=== PATIENT | female | born 1970 | race Caucasian/White ===

== ENCOUNTER → 2019-02-14 | Outpatient (CLI) | payer BC ==
[2019-02-14 11:27] LABS: Basophils % (A) 1 %; Eosinophils # (A) 0.1 k/uL (0-0.7); Eosinophils % (A) 3 %; HCT 37.8 % (34.0-46.0); HGB 12.7 gm/dL (11.4-16.0); Lymphocytes # (A) 1.1 k/uL (1.0-4.8); Lymphocytes % (A) 27 %; MCH 30.6 pg (25.0-35.0); MCHC 33.5 g/dL (31.0-37.0); MCV 91.4 fL (80.0-100.0); Mean Platelet Volume 6.3; Monocytes # (A) 0.3 k/uL (0-1.0); Monocytes % (A) 7 %; Neutrophils # (A) 2.3 k/uL (1.3-7.7); Neutrophils % (A) 58 %; Platelet Count 202 k/uL (150-450); RBC 4.14 m/uL (3.80-5.40); RDW 12.6 % (11.5-15.5)
== END | disposition home or self-care (01) ==
LOC: LABWHC1 10:29
PROVIDERS: ATTEND Obstetrics & Gynecology
DX: D50.0 Iron deficiency anemia secondary to blood loss (chronic) (principal)
CPT/HCPCS: 36415; 82306; 85025

== ENCOUNTER → 2019-04-20 | Outpatient (CLI) | payer BC ==
[2019-04-20 16:58] LABS: African American GFR (CKD) 87.6 (60.0-200.0); Albumin 4.3 g/dL (3.80-4.90); Albumin/Globulin Ratio 2.05 (1.60-3.17); Anion Gap 7.1 mmol/L (4.00-12.00); BUN/Creat Ratio 16.67 Ratio (12.00-20.00); Calcium 9.5 mg/dL (8.7-10.3); Carbon Dioxide 22.9 mmol/L (21.6-31.8); Chol/HDL Ratio 2.46; Globulin 2.1 g/dL (1.6-3.3); LDL Cholesterol,Calculated 89.8 mg/dL (0.0-131.0); Non-African American GFR(CKD) 75.6 (60.0-200.0); Potassium 4.2 mmol/L (3.5-5.5); Total Bilirubin 0.7 mg/dL (0.2-1.2); Total Protein 6.4 g/dL (6.2-8.2); VLDL Calculation 11.2 mg/dL (5.00-40.00)
== END | disposition home or self-care (01) ==
LOC: LABWHC1 08:39
PROVIDERS: ATTEND Internal Medicine
DX: Z00.00 Encounter for general adult medical examination without abnormal findings (principal); E55.9 Vitamin D deficiency, unspecified; M85.80 Other specified disorders of bone density and structure, unspecified site
CPT/HCPCS: 36415; 80053; 80061; 82306

== ENCOUNTER → 2020-06-28 | Outpatient (CLI) | payer BC ==
--- NOTE | 2020-06-28 12:52 | ECHOF ---
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 This was a technically adequate study. The left ventricular size is normal. Left ventricular wall thickness is normal. Overall left vent ricular systolic function is normal with, an EF between 55 - 60 %. The diastolic filling pattern is normal for the age of the patient 10.60. The right ventricle is normal in size. Normal LA size by volume 22+/-6 ml/m2. The right atrial size is normal. Interatrial and interventricular septum intact. The aortic valve is trileaflet, and appears structurally normal. No aortic stenosis or regurgitation. The mitral valve is normal. There is trace to mild mitral regurgitation. The tricuspid valve appears structurally normal. Mild tricuspid regurgitation present. Right vent ricular systolic pressure is normal at < 35 mmHg. There is no pulmonic regurgitation present. Pulmonary artery pressure 3.5 mm/Hg The aortic root size is normal. Normal inferior vena cava with normal inspiratory collapse consistent with estimated right atrial pre ssure of 5 mmHg. There is no pericardial effusion. CONCLUSIONS -------- 1. Left ventricular wall thickness is normal. 2. Overall left ventricular systolic function is normal with, an EF between 55 - 60 %. 3. Normal LA size by volume 22+/-6 ml/m2. 4. The aortic valve is trileaflet, and appears structurally normal. No aortic stenosis or regurgitati on. 5. There is trace to mild mitral regurgitation. 6. Mild tricuspid regurgitation present. 7. Pulmonary artery pressure 3.5 mm/Hg 8. There is no pericardial effusion. DIRECTOR OF DEMENTIA OPERATIONS: Calli Rowan RDCS
== END ==
LOC: CPPFTMAIN 07:33
PROVIDERS: ATTEND Internal Medicine Rheumatology
DX: I08.1 Rheumatic disorders of both mitral and tricuspid valves (principal)
CPT/HCPCS: 93306; 94060; 94726; 94729

== ENCOUNTER → 2021-08-01 | Outpatient (CLI) | payer BC ==
[~2021-08-01] MED LIST: BEBTELOVIMAB (EUA) 175 MG/2 ML VIAL IV NR; SODIUM CHLORIDE 0.9% 500 ML 500 ML in EMPTY BAG 1 BAG IV PRN
[2021-08-01 13:27] VITALS: TEMP 98.3
[2021-08-01 14:07] VITALS: BP 100/69; PULSE 71; RESP 16
== END ==
LOC: PROCWHC3 13:01
PROVIDERS: ATTEND Family Medicine
DX: U07.1 COVID-19 (principal); Z88.2 Allergy status to sulfonamides
CPT/HCPCS: 96374; Q0222; M0222

== ENCOUNTER 2022-09-07 10:49 | Day surgery (SDC) | payer BC ==
[2022-09-05 15:17] VITALS: BMI 21.6
[~2022-09-07 10:49] MED LIST changes: -BEBTELOVIMAB (EUA) 175 MG/2 ML VIAL IV NR; +LACTATED RINGERS 1,000 ML IV SCH; -SODIUM CHLORIDE 0.9% 500 ML 500 ML in EMPTY BAG 1 BAG IV PRN
[2022-09-07 12:54] VITALS: TEMP 97
[2022-09-07] MEDS ORDERED: LIDOCAINE 1% (10MG/ML) FOR IV START INTRADERMA ONE (12:54)
[2022-09-07] MEDS ORDERED: LIDOCAINE 2% INJ 20 MG/ML (2 ML VIAL) ONE (13:12)
[2022-09-07] MEDS ORDERED: PROPOFOL 10 MG/ML 20 ML VIAL IV ONE (13:12)
[2022-09-07 13:13] LABS: Glucose,Whole Blood 74 mg/dL (70-110)
--- NOTE | 2022-09-07 13:32 | P.PCN ---
Date of Procedure: 09/07/22 Procedure(s) Performed: BRIEF HISTORY: Patient is a 52-year-old pleasant white female scheduled for an elective colonoscopy as a part of screening for colon cancer. PROCEDURE PERFORMED: Colonoscopy. PREOPERATIVE DIAGNOSIS: Screening for colon cancer. IV sedation per Anesthesia. PROCEDURE: After informed consent was obtained, the patient, was brought into the endoscopy unit. IV sedation was administered by Anesthesia under continuous monitoring. Digital rectal examination was normal. Initially the Olympus CF-160 flexible video colonoscope was then inserted in the rectum, gradually advanced into the cecum without any difficulty. Careful examination was performed as the scope was gradually being withdrawn. Ileocecal valve and the appendiceal orifice were visualized and appeared normal. Prep was excellent. Mucosa of the cecum, ascending colon, transverse colon, descending colon, sigmoid colon, and rectum appeared normal. Retroflexion was performed in the rectum and no lesions were seen. The patient tolerated the procedure well. IMPRESSION: Normal-appearing colon from rectum to cecum with no evidence of colorectal neoplasia . RECOMMENDATIONS: Findings of this examination were discussed with the patient as well as a family. She was advised to have a repeat screening colonoscopy in 10 years.
[2022-09-07 13:52] VITALS: BP 107/70; PULSE 70; RESP 12
== END 2022-09-07 14:05 | disposition home or self-care (01) ==
LOC: ORWHC2ENDO 10:49
PROVIDERS: ATTEND Internal Medicine Gastroenterology
DX: Z12.11 Encounter for screening for malignant neoplasm of colon (principal); Z79.899 Other long term (current) drug therapy; Z88.2 Allergy status to sulfonamides
CPT/HCPCS: 45378; J2704; J2001

== ENCOUNTER → 2023-02-26 | Outpatient (CLI) | payer BC ==
--- NOTE | 2023-02-26 12:51 | CA ---
Transthoracic Echo Report Name: Liya Carreon Age: 52 Gender: F : 1970 Exam Date: 02/26/2023 11:41 Exam Location: [facility] Ht (in): 67 Wt (lb): 135 Ordering Physician: Sherry Camejo MD Attending/Referring Phys: Sherry Camejo MD Director Strategic Planning Blank Saldana [facility] Procedure CPT: Indications: M34.9 Systemic Sclerosis Cardiac Hx: Technical Quality: Fair Contrast 1: Total Dose (mL): Contrast 2: Total Dose (mL): MEASUREMENTS (Male / Female) Normal Values 2D ECHO LV Diastolic Diameter PLAX 4.5 cm 4.2 - 5.9 / 3.9 - 5.3 cm LV Systolic Diameter PLAX 3.2 cm IVS Diastolic Thickness 0.8 cm 0.6 - 1.0 / 0.6 - 0.9 cm LVPW Diastolic Thickness 0.7 cm 0.6 - 1.0 / 0.6 - 0.9 cm LV Relative Wall Thickness 0.3 LVOT Diameter 2.0 cm Aortic Root Diameter 3.1 cm LV Diastolic Volume MOD BP 83.2 cm??? 67 - 155 / 56 - 104 cm??? LV Systolic Volume MOD BP 37.8 cm??? 22 - 58 / 19 - 49 cm??? LV Ejection Fraction MOD BP 54.6 % >= 55 % LV Cardiac Index MOD BP 1550.2 cm???/min???m??? LV Diastolic Volume MOD 4C 78.4 cm??? LV Systolic Volume MOD 4C 35.0 cm??? LV Ejection Fraction MOD 4C 55.3 % LV Cardiac Index MOD 4C 1479.6 cm???/min???m??? LV Diastolic Length 4C 7.1 cm LV Systolic Length 4C 5.7 cm LV Diastolic Volume MOD 2C 81.1 cm??? LV Systolic Volume MOD 2C 35.5 cm??? LV Ejection Fraction MOD 2C 56.2 % LV Cardiac Index MOD 2C 1554.8 cm???/min???m??? LV Diastolic Length 2C 7.9 cm LV Systolic Length 2C 6.8 cm Ascending Aorta Diameter 2.7 cm M-MODE Aortic Root Diameter MM 3.0 cm LA Systolic Diameter MM 3.2 cm LA Ao Ratio MM 1.1 AV Cusp Separation MM 2.0 cm DOPPLER AV Peak Velocity 131.8 cm/s AV Peak Gradient 7.0 mmHg AV Mean Velocity 93.7 cm/s AV Mean Gradient 3.9 mmHg AV Velocity Time Integral 29.8 cm LVOT Peak Velocity 101.8 cm/s LVOT Peak Gradient 4.1 mmHg LVOT Velocity Time Integral 20.8 cm LVOT Stroke Volume 65.3 cm??? LVOT Stroke Volume Index 38.2 ml/m??? LVOT Cardiac Index 2229.6 cm???/min???m??? AV Area Cont Eq vti 2.2 cm??? AV Area Cont Eq pk 2.4 cm??? Mitral E Point Velocity 76.1 cm/s Mitral A Point Velocity 75.1 cm/s Mitral E to A Ratio 1.0 MV Deceleration Time 215.6 ms LV E' Lateral Velocity 11.9 cm/s Mitral E to LV E' Lateral Ratio 6.4 LV E' Septal Velocity 10.0 cm/s Mitral E to LV E' Septal Ratio 7.6 TR Peak Velocity 195.3 cm/s TR Peak Gradient 15.3 mmHg Right Atrial Pressure 15.0 mmHg Pulmonary Artery Systolic Pressu 30.3 mmHg Right Ventricular Systolic Press 30.3 mmHg FINDINGS Left Ventricle Left ventricular wall thickness normal. Left ventricular cavity size normal. normal left ventricular systolic function with no obvious regional wall motion abnormalities. Left ventricular ejection fraction is estimated at 55-60 %. Right Ventricle Normal right ventricular size and function. Right ventricular systolic pressure estimated at 30.3 mmHg. Right Atrium Normal right atrial size. Left Atrium Normal left atrial size. Mitral Valve Structurally normal mitral valve. Trace mitral regurgitation. Aortic Valve Trileaflet aortic valve. No aortic valve stenosis or regurgitation. Tricuspid Valve Structurally normal tricuspid valve. Trace tricuspid regurgitation. Pulmonic Valve Structurally normal pulmonic valve. No pulmonic regurgitation. Pericardium No pericardial effusion. Aorta Normal size aortic root and proximal ascending aorta. CONCLUSIONS 1. Normal left ventricle size and systolic function 2. Trace mitral and tricuspid regurgitation Previewed by: Dr. Jagruti Swanson MD (Electronically Signed) Final Date: 26 February 2023 12:50
== END ==
LOC: CPPFTMAIN 10:32
PROVIDERS: ATTEND Internal Medicine Rheumatology
DX: M34.9 Systemic sclerosis, unspecified (principal); Z88.2 Allergy status to sulfonamides
CPT/HCPCS: 93306; 94060; 94726; 94729

== ENCOUNTER → 2023-02-26 | Outpatient (CLI) | payer BC | END | disposition home or self-care (01) | LOC: RADECHMAIN 10:29 | PROVIDERS: ATTEND Internal Medicine Rheumatology | DX: Z53.9 Procedure and treatment not carried out, unspecified reason (principal) ==

== ENCOUNTER 2024-02-25 16:37 | Emergency (ER) | payer BC ==
--- NOTE | 2024-02-25 17:00 | ED ---
Nausea/Vomiting/Diarrhea HPI - General Chief complaint: Nausea/Vomiting/Diarrhea Stated complaint: Dizziness Time Seen by Provider: 02/25/24 16:59 Source: patient, EMS, RN notes reviewed, old records reviewed Mode of arrival: EMS Limitations: no limitations - History of Present Illness Initial comments: This is a 53-year-old female to the ER for evaluation patient [facility] for evaluation regards to dizziness severe sudden onset of dizziness that is mildly improved here in the ER but still ongoing MD complaint: other (Severe dizziness lightheadedness and weakness) -: days(s) Associated Abdominal Pain: Yes Severity: severe Consistency: intermittent, now resolved Improves with: none Worsens with: none - Related Data Home Medications Medication Instructions Recorded Confirmed Acetaminophen Tab [Tylenol] 325 mg PO Q6H 09/05/22 09/07/22 Multivitamins, Thera [Multivitamin 1 tab PO DAILY 09/05/22 09/07/22 (formulary)] Allergies Allergy/AdvReac Type Severity Reaction Status Date / Time Sulfa (Sulfonamide Allergy Unknown Verified 09/07/22 12:55 Antibiotics) Review of Systems ROS Statement: Those systems with pertinent positive or pertinent negative responses have been documented in the HPI. ROS Other: All systems not noted in ROS Statement are negative. Past Medical History Additional Past Medical History / Comment(s): Sjogren's & Raynaud's History of Any Multi-Drug Resistant Organisms: None Reported Past Surgical History: Orthopedic Surgery, Uterine Ablation Additional Past Surgical History / Comment(s): R knee surgery Past Anesthesia/Blood Transfusion Reactions: No Reported Reaction Smoking Status: Never smoker - Past Family History Mother Family Medical History: No Reported History Course Vital Signs 02/25/24 02/25/24 02/25/24 16:42 17:00 20:37 Temperature 98.0 F Pulse Rate 70 57 L 60 Respiratory 16 18 18 Rate Blood Pressure 115/74 115/74 118/80 O2 Sat by Pulse 98 99 99 Oximetry - Reevaluation(s) Reevaluation #1: 02/25/24 20:05 Medical records reviewed Reevaluation #2: 02/25/24 20:05 Patient symptoms remain improved Reevaluation #3: 02/25/24 20:05 Patient informed of results and questions answered Reevaluation #4: Was pt. sent in by a medical professional or institution (Dr., PA, TAPE FOLDING MACHINE OPERATOR, urgent care, hospital, or senior care...) When possible be specific @ -no Did you speak to anyone other than the patient for history (EMS, parent, family, police, friend...)? What history was obtained from this source @ -no Did you review nursing and triage notes (agree or disagree)? Why? @ -agree Are old charts reviewed (outside hosp., previous admission, EMS record, old EKG, old radiological studies, urgent care reports/EKG's, senior care records)? Report findings @ -yes Differential Diagnosis (chest pain, altered mental status, abdominal pain women, abdominal pain men, vaginal bleeding, weakness, fever, dyspnea, syncope, headache, dizziness, GI bleed, back pain, seizure, CVA, palpatations, mental health, musculoskeletal)? @ -prior EKG interpreted by me (3pts min.). @ -yes X-rays interpreted by me (1pt min.). @ -no CT interpreted by me (1pt min.). @ -yes negative for acute disease U/S interpreted by me (1pt. min.). @ -no What testing was considered but not performed or refused? (CT, X-rays, U/S, labs)? Why? @ -none What meds were considered but not given or refused? Why? @ -none Did you discuss the management of the patient with other professionals (sandhya esquiveleThomas Aguilar, PA, TAPE FOLDING MACHINE OPERATOR, lab, RT, psych nurse, social psychologist, biomedical engineering professor, teacher, animal park code enforcement officer, rehabilitation case coordinator)? Give summary @ -no Was smoking cessation discussed for >3mins.? @ -no Was critical care preformed (if so, how long)? @ -no Were there social determinants of health that impacted care today? How? (Homelessness, low income, unemployed, alcoholism, drug addiction, transportation, low edu. Level, literacy, decrease access to med. care, penitentiary, rehab)? @ -none Was there de-escalation of care discussed even if they declined (Discuss DNR or withdrawal of care, Hospice)? DNR status @ -no What co-morbidities impacted this encounter? (DM, HTN, Smoking, COPD, CAD, Cancer, CVA, ARF, Chemo, Hep., AIDS, mental health diagnosis, sleep apnea, morbid obesity)? @ -none Was patient admitted / discharged? Hospital course, mention meds given and route, prescriptions, significant lab abnormalities, going to OR and other pertinent info. @ - 53 female to ER with dizziness and near syncope, nausea vomiting symptoms improved patient has negative testing here in the ER and can be discharged home Discharge Undiagnosed new problem with uncertain prognosis? @ -no Drug Therapy requiring intensive monitoring for toxicity (Heparin, Nitro, Insulin, Cardizem)? @ -no Were any procedures done? @ -no Diagnosis/symptom? @ -Dizziness near syncope Acute, or Chronic, or Acute on Chronic? @ -Acute Uncomplicated (without systemic symptoms) or Complicated (systemic symptoms)? @ -Complicated Side effects of treatment? @ -no Exacerbation, Progression, or Severe Exacerbation? @ -exacerbation Poses a threat to life or bodily function? How? (Chest pain, [place], [place], pneumonia, PE, COPD, DKA, ARF, appy, cholecystitis, CVA, Diverticulitis, Homicidal, Suicidal, threat to staff... and all critical care pts) @ -yes cause of syncope Reevaluation #5: Differential Dizziness: Benign paroxysmal positional Vertigo, Meniere's disease, otitis media, acoustic neuroma, vertebrobasilar insufficiency, cerebellar stroke, encephalitis, hypovolemic, arrhythmia, coronary artery syndrome, anemia, this is not meant to be an all-inclusive list Medical Decision Making - Medical Decision Making 53 female to ER with dizziness and near syncope, nausea vomiting symptoms improved patient has negative testing here in the ER and can be discharged home - Lab Data Result diagrams: 02/25/24 17:52 02/25/24 17:52 Lab Results 02/25/24 02/25/24 02/25/24 Range/Units 17:52 17:52 17:52 WBC 8.7 (3.8-10.6) k/uL RBC 4.12 (3.80-5.40) m/uL Hgb 12.6 (11.4-16.0) gm/dL Hct 37.5 (34.0-46.0) % MCV 91.1 (80.0-100.0) fL MCH 30.6 (25.0-35.0) pg MCHC 33.6 (31.0-37.0) g/dL RDW 13.0 (11.5-15.5) % Plt Count 195 (150-450) k/uL MPV 7.5 Neutrophils % 79 % Lymphocytes % 13 % Monocytes % 5 % Eosinophils % 1 % Basophils % 0 % Neutrophils # 6.8 (1.3-7.7) k/uL Lymphocytes # 1.2 (1.0-4.8) k/uL Monocytes # 0.4 (0-1.0) k/uL Eosinophils # 0.1 (0-0.7) k/uL Basophils # 0.0 (0-0.2) k/uL PT 11.2 (10.0-12.5) sec INR 1.0 (<1.2) APTT 23.5 (22.0-30.0) sec Sodium 135 L (137-145) mmol/L Potassium 3.9 (3.5-5.1) mmol/L Chloride 106 (98-107) mmol/L Carbon Dioxide 21 L (22-30) mmol/L Anion Gap 8 mmol/L BUN 20 H (7-17) mg/dL Creatinine 0.67 (0.52-1.04) mg/dL Est GFR (CKD-EPI)AfAm >90 (>60 ml/min/1.73 sqM) Est GFR (CKD-EPI)NonAf >90 (>60 ml/min/1.73 sqM) Glucose 94 (74-99) mg/dL Calcium 9.1 (8.4-10.2) mg/dL Phosphorus 3.9 (2.5-4.5) mg/dL Magnesium 1.9 (1.6-2.3) mg/dL Total Bilirubin 0.5 (0.2-1.3) mg/dL AST 25 (14-36) U/L ALT 16 (4-34) U/L Alkaline Phosphatase 49 (38-126) U/L Troponin I (0.000-0.034) ng/mL NT-Pro-B Natriuret Pep 65 pg/mL Total Protein 6.8 (6.3-8.2) g/dL Albumin 4.1 (3.5-5.0) g/dL 02/25/24 Range/Units 17:52 WBC (3.8-10.6) k/uL RBC (3.80-5.40) m/uL Hgb (11.4-16.0) gm/dL Hct (34.0-46.0) % MCV (80.0-100.0) fL MCH (25.0-35.0) pg MCHC (31.0-37.0) g/dL RDW (11.5-15.5) % Plt Count (150-450) k/uL MPV Neutrophils % % Lymphocytes % % Monocytes % % Eosinophils % % Basophils % % Neutrophils # (1.3-7.7) k/uL Lymphocytes # (1.0-4.8) k/uL Monocytes # (0-1.0) k/uL Eosinophils # (0-0.7) k/uL Basophils # (0-0.2) k/uL PT (10.0-12.5) sec INR (<1.2) APTT (22.0-30.0) sec Sodium (137-145) mmol/L Potassium (3.5-5.1) mmol/L Chloride (98-107) mmol/L Carbon Dioxide (22-30) mmol/L Anion Gap mmol/L BUN (7-17) mg/dL Creatinine (0.52-1.04) mg/dL Est GFR (CKD-EPI)AfAm (>60 ml/min/1.73 sqM) Est GFR (CKD-EPI)NonAf (>60 ml/min/1.73 sqM) Glucose (74-99) mg/dL Calcium (8.4-10.2) mg/dL Phosphorus (2.5-4.5) mg/dL Magnesium (1.6-2.3) mg/dL Total Bilirubin (0.2-1.3) mg/dL AST (14-36) U/L ALT (4-34) U/L Alkaline Phosphatase (38-126) U/L Troponin I <0.012 (0.000-0.034) ng/mL NT-Pro-B Natriuret Pep pg/mL Total Protein (6.3-8.2) g/dL Albumin (3.5-5.0) g/dL - EKG Data -: EKG Interpreted by Me (EKG is sinus 60 NM 200 QRS 104 QTc 448) - Radiology Data Radiology results: report reviewed (CT brain CTA head neck negative for acute disease), image reviewed Disposition Clinical Impression: Vertigo, Dizziness, Near syncope, Nausea & vomiting Disposition: HOME SELF-CARE Instructions (If sedation given, give patient instructions): Acute Nausea and Vomiting (ED), Near Syncope (ED), Dizziness (ED) Is patient prescribed a controlled substance at d/c from ED?: No Referrals: Jose Antonio Perez MD [Primary Care Provider] - 1-2 days Time of Disposition: 20:00
[2024-02-25 17:01] VITALS: RESP 18
[2024-02-25] MEDS: SODIUM CHLORIDE 0.9% 1,000 ML IV STA (18:09)
[2024-02-25] MEDS: ONDANSETRON 4 MG/2 ML VIAL IVP STA (18:09)
[2024-02-25] MEDS: diphenhydrAMINE 50 MG/ML 1 ML VIAL IVP STA (18:10)
[2024-02-25 18:11] LABS: Basophils % (A) 0 %; Eosinophils # (A) 0.1 k/uL (0-0.7); Eosinophils % (A) 1 %; HCT 37.5 % (34.0-46.0); HGB 12.6 gm/dL (11.4-16.0); Lymphocytes # (A) 1.2 k/uL (1.0-4.8); Lymphocytes % (A) 13 %; MCH 30.6 pg (25.0-35.0); MCHC 33.6 g/dL (31.0-37.0); MCV 91.1 fL (80.0-100.0); Mean Platelet Volume 7.5; Monocytes # (A) 0.4 k/uL (0-1.0); Monocytes % (A) 5 %; Neutrophils # (A) 6.8 k/uL (1.3-7.7); Neutrophils % (A) 79 %; Platelet Count 195 k/uL (150-450); RBC 4.12 m/uL (3.80-5.40); WBC 8.7 k/uL (3.8-10.6)
[2024-02-25 18:14] LABS: ALT 16 U/L (4-34); African American GFR (CKD) >90 (>60 ml/min/1.73 sqM); Albumin 4.1 g/dL (3.5-5.0); Anion Gap 8 mmol/L; Blood Urea Nitrogen 20 mg/dL (7-17); Calcium 9.1 mg/dL (8.4-10.2); Carbon Dioxide 21 mmol/L (22-30); Chloride 106 mmol/L (98-107); Glucose 94 mg/dL (74-99); Non-African American GFR(CKD) >90 (>60 ml/min/1.73 sqM); Phosphorus 3.9 mg/dL (2.5-4.5); Sodium 135 mmol/L (137-145); Total Bilirubin 0.5 mg/dL (0.2-1.3); Total Protein 6.8 g/dL (6.3-8.2)
[2024-02-25 18:22] LABS: NT-Pro-B-Type Natriuretic Pept 65 pg/mL
[2024-02-25 18:40] LABS: AST 25 U/L (14-36); Magnesium 1.9 mg/dL (1.6-2.3); Potassium 3.9 mmol/L (3.5-5.1)
[2024-02-25 18:41] LABS: Alkaline Phosphatase 49 U/L (38-126)
[2024-02-25 18:48] LABS: Partial Thromboplastin Time 23.5 sec (22.0-30.0); Prothrombin Time 11.2 sec (10.0-12.5)
--- NOTE | 2024-02-25 19:12 | CT ---
EXAMINATION TYPE: CT brain wo con DATE OF EXAM: 02/25/2024 COMPARISON: None INDICATION: headache and dizziness DLP: 1094.6 mGycm, Automated exposure control for dose reduction was used. CONTRAST: None CT of the brain is performed utilizing 3 mm thick sections through the posterior fossa and 3 mm thick sections through the remaining calvarium. Study is performed within 24 hours of arrival to the hosp ital. No abnormal hyperdensity is present to suggest an acute intracranial hemorrhage. No mass lesion is evident. No acute infarcts are evident. Ventricles and sulci are appropriate for the patient age. Paranasal sinuses and mastoid air cells within the [id number] are clear. IMPRESSION: 1. No acute intracranial process. Follow up MRI can be performed as clinically indicated. [facility], Workstation: [facility], 02/25/2024 7:09 PM
--- NOTE | 2024-02-25 19:48 | CT ---
EXAMINATION TYPE: CT angio head neck DATE OF EXAM: 02/25/2024 HISTORY: headache and dizziness COMPARISON: CT DLP: 351 mGycm. Automated Exposure Control for Dose Reduction was Utilized. TECHNIQUE: CTA scan of the neck is performed with IV Contrast, patient injected with 65 mL of Isovue 370, axial images are obtained, coronal and sagittal reformatted images are reviewed. Three-D recons tructed images are created on an independent workstation and reviewed. Source images are reviewed. FINDINGS: Carotid/Vascular Structures: There is a 3 vessel arch. Common carotid arteries bifurcate into internal and external carotid arteries without significant karla w limiting stenosis. Vertebral arteries are codominant. Internal carotid arteries and vertebral arteries are patent to the skull base. Cervical of Luke: Vertebral basilar system appears normal. Posterior cerebral vasculature is unrema rkable. Internal carotid arteries bifurcate normally into A1 and M1 segments. A2 segments are normal. The anterior communicating artery is patent. The right posterior communicating artery is absent. The left posterior communicating artery is absent. IMPRESSION: 1. No flow-limiting stenosis bilateral carotid bifurcations. 2. Normal [place] of [place] NASCET criteria was used in interpretation of this exam? [facility], Workstation: [facility], 02/25/2024 7:46 PM
[2024-02-25] MEDS: ONDANSETRON 4 MG ODT STARTER PACK 2 TAB BTL PO STA (20:31)
[2024-02-25 20:39] VITALS: BP 118/80; PULSE 60; TEMP 98
== END 2024-02-25 20:39 | disposition home or self-care (01) ==
LOC: EC 16:37
DX: R42 Dizziness and giddiness (principal); R52 Pain, unspecified; R11.2 Nausea with vomiting, unspecified; Z88.1 Allergy status to other antibiotic agents; Z88.2 Allergy status to sulfonamides
CPT/HCPCS: 96361 ×2; 96374 ×2; 96375 ×2; 99284 ×2; 36415; 93005; 83880; 80053; 83735; 84100; 84484; 85025; 85610; 85730; 70496; 70450; 70498; J1200; J2405; S0119; Q9967